=== PATIENT | male | born 1980 | race Caucasian/White ===

== ENCOUNTER → 2020-08-06 | Outpatient (CLI) | payer SELFPAY ==
[~2020-08-06] MED LIST: CYCLOBENZAPRINE5 M3 PO; HYDROCODONE BIT1 T11 PO; Motrin,Rufen800 MG PO
== END | disposition home or self-care (01) ==
LOC: COVID19 12:40
PROVIDERS: ATTEND Nurse Practitioner Family
DX: U07.1 COVID-19 (principal); R19.7 Diarrhea, unspecified; R52 Pain, unspecified